=== PATIENT | female | born 1995 | race American Indian/Alaskan Native ===

== ENCOUNTER 2017-04-13 10:33 | Emergency (ER) | payer SELFPAY ==
[2017-04-13] MEDS ORDERED: FUL-GLO OP ONE (11:41)
[2017-04-13] MEDS ORDERED: TETRACAINE 0.5% OD STA (11:42)
--- NOTE | 2017-04-13 11:49 | Emergency Department Report ---
ED Eye Problem HPI - General Chief complaint: Eye Problems Stated complaint: POSSIBLE RIGHT EYE INFECTION Time Seen by Provider: 04/13/17 11:40 Source: patient Mode of arrival: Ambulatory Limitations: No Limitations - History of Present Illness Initial comments: PT states on Saturday she was scratching around her eye, when she was bumped and accidentally poked herself in the right eye. PT states redness and tearing gradually appeared. PT states she showed her eye to her mother who advised her to go to ED. PT states this am her pain has been an 8/10. PT denies blurred vision. PT denies wearing glasses or contacts. PT states her TDap was updated when she was in 2012 chief complaint: eye pain, eye redness, eye injury Onset/Timin -: Gradual, days(s) Onset Description: sudden (injury to eye on saturday ), gradual (redness and drainage of R eye ) Location: right eye If Injury: direct trauma Eye Symptoms: redness, pain, itching, discharge Severity: severe Severity scale (0 -10): 8 If Pain, Quality: aching Consistency: constant (gradually worsening ) Context: trauma Associated Symptoms: none Treatments Prior to Arrival: none - Related Data Patient Tetanus UTD: Yes Previous Rx's Medication Instructions Recorded Last Taken Type Acetaminophen/Codeine [Tylenol #3] 1 tab PO Q6H PRN #12 tab 04/13/17 Unknown Rx Erythromycin [Erythromycin Ophth 0.5 inch OD QID #1 tube 04/13/17 Unknown Rx Oint] Ibuprofen [Motrin] 600 mg PO Q8H PRN #15 tablet 04/13/17 Unknown Rx Allergies Allergy/AdvReac Type Severity Reaction Status Date / Time No Known Allergies Allergy Unverified 04/13/17 10:56 ED Review of Systems ROS: Stated complaint: POSSIBLE RIGHT EYE INFECTION Other details as noted in HPI Comment: All other systems reviewed and negative Constitutional: denies: chills, fever Eyes: as per HPI, eye pain, eye discharge. denies: vision change Gastrointestinal: denies: abdominal pain, nausea, vomiting Skin: denies: change in color ED Past Medical Hx - Past Medical History Previous Medical History?: No - Surgical History Additional Surgical History: X 2 - Social History Smoking Status: Never Smoker Substance Use Type: Alcohol - Medications Home Medications: Home Medications Medication Instructions Recorded Confirmed Last Taken Type Acetaminophen/Codeine [Tylenol #3] 1 tab PO Q6H PRN #12 tab 04/13/17 Unknown Rx Erythromycin [Erythromycin Ophth 0.5 inch OD QID #1 tube 04/13/17 Unknown Rx Oint] Ibuprofen [Motrin] 600 mg PO Q8H PRN #15 tablet 04/13/17 Unknown Rx ED Physical Exam - General Limitations: No Limitations General appearance: alert, in no apparent distress - Head Head exam: Present: atraumatic, normocephalic, normal inspection - Eye Eye exam: Present: PERRL, EOMI, conjunctival injection (L ), other (R lower eye lid with abrasion to conjunctival sac). Absent: periorbital swelling, periorbital tenderness Pupils: Present: normal accommodation - Expanded Eye Exam Expanded Pupils: Regular, Round: Bilateral Sclera/Conjunctival: Injection: Right Anterior chamber: Normal Inspection: Right Visual acuity (R) = 20/: 30 Visual acuity (L) = 20/: 20 With correction: No - ENT ENT exam: Present: normal exam, normal external ear exam - Neck Neck exam: Present: normal inspection, full ROM - Respiratory Respiratory exam: Absent: respiratory distress, accessory muscle use - Cardiovascular Cardiovascular Exam: Present: regular rate, normal rhythm - Extremities Exam Extremities exam: Present: normal inspection, full ROM - Back Exam Back exam: Present: normal inspection, full ROM - Neurological Exam Neurological exam: Present: alert, oriented X3 - Psychiatric Psychiatric exam: Present: normal affect, normal mood - Skin Skin exam: Present: warm, dry, intact, normal color ED Course Vital Signs 04/13/17 04/13/17 04/13/17 10:47 10:52 12:53 Temperature 98.5 F 98.5 F 98 F Pulse Rate 66 66 73 Respiratory 16 17 18 Rate Blood Pressure 116/76 Blood Pressure 116/76 150/83 [Right] O2 Sat by Pulse 100 100 98 Oximetry - Reevaluation(s) Reevaluation #1: 04/13/17 12:07 PT aware of abnormal PE findings. PT aware of plan of care and need for close ophthalmologic follow up. Strict return precautions reviewed with pt. - Pulse Oximetry Interpretation Digit-Finger Initial Pulse Oximetry Readin Actions Taken: none ED Medical Decision Making - Differential Diagnosis conjuntivitis, corneal abrasion, Critical Care Time: No Critical care attestation.: If time is entered above; I have spent that time in minutes in the direct care of this critically ill patient, excluding procedure time. ED Disposition Clinical Impression: Acute conjunctivitis Qualifiers: Acute conjunctivitis type: unspecified Laterality: right Qualified Code(s): H10.31 - Unspecified acute conjunctivitis, right eye Eye injury, superficial Qualifiers: Encounter type: initial encounter Laterality: right Qualified Code(s): S05.8X1A - Other injuries of right eye and orbit, initial encounter Disposition: DISCHARGED TO HOME OR SELFCARE Is pt being admited?: No Does the pt Need Aspirin: No Condition: Stable Instructions: Conjunctivitis (ED), Corneal Abrasion (ED), Orbital Cellulitis ( ED) Additional Instructions: Warm compresses at least 4 times a day try to control your pain with Motrin first Follow up with an eye doctor in the next 2-3 days Return to the ED if your symptoms worsen or your have concerns No driving or ETOH after taking Tylenol #3 Use the antibiotic eye ointment for the next 7 days Prescriptions: Acetaminophen/Codeine [Tylenol #3] 1 tab PO Q6H PRN #12 tab PRN Reason: Pain , Severe (7-10) Erythromycin [Erythromycin Ophth Oint] 0.5 inch OD QID #1 tube Ibuprofen [Motrin] 600 mg PO Q8H PRN #15 tablet PRN Reason: Pain Referrals: PRIMARY CAREMD [Primary Care Provider] - 3-5 Days [facility] [Outside] - 3-5 Days [facility] [Outside] - 3-5 Days KAITLYNN GLEASON MD [Staff Physician] - 3-5 Days Time of Disposition: 12:13
[2017-04-13 12:53] VITALS: BP 150/83
== END 2017-04-13 12:56 | disposition home or self-care (01) ==
LOC: ED 10:33
DX: H10.31 Unspecified acute conjunctivitis, right eye (principal); Z98.890 Other specified postprocedural states
CPT/HCPCS: 99283